=== PATIENT | female | born 1950 | race Caucasian/White ===

== ENCOUNTER 2016-10-12 23:39 | Observation (INO) | payer OTHER, BC ==
[2016-10-13 00:40] VITALS: BMI 21.8
--- NOTE | 2016-10-13 00:54 | PDOC ---
History of Present Illness - General History Source: Patient Exam Limitations: No Limitations <Osorio Rivera - Last Filed: 10/13/16 01:18> <Luis Fernando Vernon - Last Filed: 10/13/16 02:00> <Diane Bella - Last Filed: 10/13/16 08:05> - General Chief Complaint: Chest Pain Stated Complaint: CHEST PAIN Time Seen by Provider: 10/13/16 00:29 - History of Present Illness Initial Comments: 10/13/16 01:19 The patient is a 65 year old female, with a significant past medical history of HTN, anxiety and GERD, who presents to the emergency department with chest pain onset tonight. She describes her chest pain as mild, lasting roughly 20 minutes prior to resolving. She reports that she has had chest pain in the past but not like this and notes that she believes that her uncle had some cardiac issues but it's not aware of the age that it was onset. The patient denies shortness of breath, headache and dizziness. Denies fever, chills, nausea, vomit, diarrhea and constipation. Denies dysuria, frequency, urgency and hematuria. Allergies: None Past surgical history: None reported Social history: Wine use. No tobacco or drug use reported (Osorio Rivera) Past History <Osorio Rivera - Last Filed: 10/13/16 01:18> - Past Medical History HTN: Yes - Immunization History Immunization Up to Date: Yes - Psycho/Social/Smoking Cessation Hx Anxiety: No Suicidal Ideation: No Smoking History: Unknown if ever smoked Information on smoking cessation initiated: No Hx Alcohol Use: No Drug/Substance Use Hx: No Substance Use Type: None <Luis Fernando Vernon - Last Filed: 10/13/16 02:00> <Diane Bella - Last Filed: 10/13/16 08:05> - Past Medical History Allergies/Adverse Reactions: Allergies Allergy/AdvReac Type Severity Reaction Status Date / Time No Known Allergies Allergy Verified 10/13/16 00:36 Home Medications: Ambulatory Orders Lisinopril [Prinivil] 20 mg PO DAILY 07/06/14 Lorazepam 0.5 mg PO PRN PRN 07/06/14 Sertraline HCl [Zoloft] 25 mg PO PRN 07/06/14 Review of Systems - Review of Systems Able to Perform ROS?: Yes <Osorio Rivera - Last Filed: 10/13/16 01:18> <Luis Fernando Vernon - Last Filed: 10/13/16 02:00> <Diane Bella - Last Filed: 10/13/16 08:05> - Review of Systems Comments:: 10/13/16 01:19 CONSTITUTIONAL: No fever, no chills, no fatigue EYES: No visual changes ENT: No ear pain, no sore throat CARDIOVASCULAR: (+) Chest pain. No palpitations RESPIRATORY: No cough, no SOB GI: No abdominal pain, no nausea, no vomiting, no constipation, no diarrhea GENITOURINARY: No dysuria, no frequency, no hematuria MUSKULOSKELETAL: No backpain, no joint pain, no myalgias SKIN: No rash NEURO: No headache (Osorio Rivera) *Physical Exam <Osorio Rivera - Last Filed: 10/13/16 01:18> <Luis Fernando Vernon - Last Filed: 10/13/16 02:00> <Diane Bella - Last Filed: 10/13/16 08:05> - Vital Signs Last Vital Signs Temp Pulse Resp BP Pulse Ox 98.3 F 76 18 157/88 99 10/13/16 02:25 10/13/16 07:42 10/13/16 07:42 10/13/16 07:42 10/13/16 07:42 - Physical Exam Comments: 10/13/16 01:19 CONSTITUTIONAL: Well-appearing; well-nourished; in no apparent distress HEAD: Normocephalic; atraumatic EYES: PERRL; EOM intact ENMT: External appears normal; normal oropharynx NECK: Supple; non-tender; no cervical lymphadenopathy CARD: Normal S1, S2; no murmurs, rubs, or gallops RESP: Normal chest excursion with respiration; breath sounds clear and equal bilaterally; no wheezes, rhonchi, or rales ABD: Soft, non-distended; non-tender; no palpable organomegaly, no palpable hernias EXT: Normal ROM in all four extremities; non-tender to palpation; distal pulses intact SKIN: Warm, dry, no rash NEURO: No focal neurological deficiencies. (Osorio Rivera) ED Treatment Course - LABORATORY CBC & Chemistry Diagram: 10/13/16 01:20 10/13/16 01:20 <Luis Fernando Vernon - Last Filed: 10/13/16 02:00> - LABORATORY CBC & Chemistry Diagram: 10/13/16 01:20 10/13/16 01:20 <Diane Bella - Last Filed: 10/13/16 08:05> - ADDITIONAL ORDERS Additional order review: Laboratory Results 10/13/16 10/13/16 10/13/16 06:00 01:20 01:20 INR 1.00 Sodium 139 Potassium 3.8 Chloride 102 Carbon Dioxide 29 Anion Gap 8 BUN 19 H D Creatinine 0.5 L D Creat Clearance w eGFR > 60 Random Glucose 109 H Calcium 9.1 Total Bilirubin 0.3 D AST 17 D ALT 25 D Alkaline Phosphatase 93 Creatine Kinase 92 93 Troponin I < 0.02 < 0.02 Total Protein 7.6 Albumin 4.1 10/13/16 01:20 RBC 4.15 MCV 89.7 MCHC 33.8 RDW 12.6 MPV 7.6 Neutrophils % 69.3 D Lymphocytes % 22.7 D Monocytes % 7.0 Eosinophils % 0.7 Basophils % 0.3 Medical Decision Making <Osorio Rivera - Last Filed: 10/13/16 01:18> <Luis Fernando Vernon - Last Filed: 10/13/16 02:00> <Diane Bella - Last Filed: 10/13/16 08:05> - Medical Decision Making 10/13/16 02:01 Patient is a well-appearing 65-year-old female with history of hypertension and GERD who presents to the ER with atypical left-sided chest pain. In the ER, patient is awake and alert, asymptomatic, hemodynamically stable. Initial EKG is within normal limit without evidence of acute ischemia. Chest x-ray reveals no evidence of cardiomegaly/infiltrate or effusion. Will obtain serial cardiac enzymes and if negative will discharge with outpatient follow-up. I do not suspect ACS or PE at this time. Will discuss with PMD prior to discharge. ( Luis Fernando Vernon) 10/13/16 07:[address] Vivian Wilkins via phone answering service. Awaiting call back. 10/13/16 07:31 Dr. Wilkins responded to the page. Patient's case was discussed. 10/13/16 07:45 Dr. Jacob request Medicine injury prevention coordinator. Dr. Hicks paged via phone answering service. Awaiting call back. 10/13/16 07:50 responded to the page and the patients case was discussed. 10/13/16 07:55 Dr. Duncan paged via phone answering service. Patient's case was discussed. (Diane Bella) *DC/Admit/Observation/Transfer <Osorio Rivera - Last Filed: 10/13/16 01:18> <Luis Fernando Vernon - Last Filed: 10/13/16 02:00> <Diane Bella - Last Filed: 10/13/16 08:05> Diagnosis at time of Disposition: Chest pain - Referrals Referrals: Vivian Wilkins [Primary Care Provider] - - Patient Instructions Printed Discharge Instructions: DI for Chest Pain - Attestations Scribe Attestion: 10/13/16 01:19 Documentation prepared by Osorio Rivera, acting as medical fee clerk for Luis Fernando Vernon MD (Osorio Rivera) 10/13/16 08:05 Documentation prepared by Diane Bella, acting as medical fee clerk for Luis Fernando Vernon MD (Diane Bella) Physician Attestion: 10/13/16 02:01 The documentation was prepared by the scribe under my direct supervision. I have reviewed the documentation which correctly represents the findings, medical decision-making and critical action taken by me. (Luis Fernando Vernon)
[2016-10-13 01:40] LABS: BASOPHIL 0.3 % (0-2.0); EOSINOPHIL 0.7 % (0-4.5); MCH 30.3 pg (25.7-33.7); MCHC 33.8 g/dl (32.0-36.0); MEAN CELL VOLUME 89.7 fl (80-96); MEAN PLT VOLUME 7.6 fl (7.5-11.1); NEUTROPHILS 69.3 % (42.8-82.8); PLATELET COUNT 200 K/MM3 (134-434); RDW 12.6 % (11.6-15.6)
[2016-10-13 02:06] LABS: ALBUMIN 4.1 g/dl (3.4-5.0); ANION GAP 8 (8-16); BILIRUBIN,TOTAL 0.3 mg/dL (0.2-1.0); CALCIUM 9.1 mg/dL (8.5-10.1); CO2 29 mmol/L (21-32); CREATININE 0.5 mg/dL (0.55-1.02); GLUCOSE,RANDOM 109 mg/dL (74-106); SGOT/AST 17 U/L (15-37); SGPT/ALT 25 U/L (12-78); TOT PROT 7.6 g/dl (6.4-8.2)
[2016-10-13 02:08] LABS: ALK PHOS 93 U/L (45-117); CPK 93 IU/L (26-192); TROPONIN I < 0.02 ng/ml (0.00-0.05)
[2016-10-13 06:42] LABS: CPK 92 IU/L (26-192); TROPONIN I < 0.02 ng/ml (0.00-0.05)
--- NOTE | 2016-10-13 07:59 | PDOC ---
*Physical Exam - Vital Signs Last Vital Signs Temp Pulse Resp BP Pulse Ox 98.3 F 76 18 157/88 99 10/13/16 02:25 10/13/16 07:42 10/13/16 07:42 10/13/16 07:42 10/13/16 07:42 ED Treatment Course - LABORATORY CBC & Chemistry Diagram: 10/13/16 01:20 10/13/16 01:20 - ADDITIONAL ORDERS Additional order review: Laboratory Results 10/13/16 10/13/16 10/13/16 06:00 01:20 01:20 INR 1.00 Sodium 139 Potassium 3.8 Chloride 102 Carbon Dioxide 29 Anion Gap 8 BUN 19 H D Creatinine 0.5 L D Creat Clearance w eGFR > 60 Random Glucose 109 H Calcium 9.1 Total Bilirubin 0.3 D AST 17 D ALT 25 D Alkaline Phosphatase 93 Creatine Kinase 92 93 Troponin I < 0.02 < 0.02 Total Protein 7.6 Albumin 4.1 10/13/16 01:20 RBC 4.15 MCV 89.7 MCHC 33.8 RDW 12.6 MPV 7.6 Neutrophils % 69.3 D Lymphocytes % 22.7 D Monocytes % 7.0 Eosinophils % 0.7 Basophils % 0.3 Medical Decision Making - Medical Decision Making 10/13/16 07:52 Patient signed out to me by Dr. Rosario. 65-year-old female history of hypertension presents with chest pain last night. Patient second troponin also returned negative. I called Dr. Wilkins, the patient's PMD who reports the patient has not had a cardiac workup in a few years and recommends that we admit her to. I called the hospitalist and spoke with Dr. Hicks who will admit the patient and requests a cardiology consult to Dr. Duncan. I spoke with Dr. Duncan who will see the patient this morning. *DC/Admit/Observation/Transfer Diagnosis at time of Disposition: Chest pain Qualifiers: Chest pain type: unspecified Qualified Code(s): R07.9 - Chest pain, unspecified - Discharge Dispostion Condition at time of disposition: Stable Admit: Yes - Referrals Referrals: Vivian Wilkins [Primary Care Provider] - - Patient Instructions Printed Discharge Instructions: DI for Chest Pain - Post Discharge Activity - Attestations Physician Attestion: 10/13/16 08:03 I, Dr. Wilmar Hutchinson MD, attest that this document has been prepared under my direction and personally reviewed by me in its entirety. I further attest, that it accurately reflects all work, treatment, procedures and medical decision -making performed by me.
--- NOTE | 2016-10-13 08:15 | CON.CARD ---
Cardiology Consult (text) - Consultation Consultation Note: Consult Dictated Atypical chest pain, likely GERD or possibly musculoskeletal REC: 3rd enzyme 10am Echo Stress MIBI ASA If above negative, d/c home with outpatient f/u 1-2 weeks. Thanks.
--- NOTE | 2016-10-13 09:01 | CONS ---
CARDIOLOGY CONSULTATION DATE OF CONSULTATION: 10/13/2016 REQUESTING PHYSICIAN: Glenys Hicks MD REASON FOR CONSULTATION: Evaluation of chest pain. HISTORY OF PRESENT ILLNESS: The patient is a 65-year-old female with chronic anxiety, chronic hypertension, who presents to the emergency room for an episode of substernal/epigastric chest burning which awoke her from sleep around 10 a.m. The pain radiated upwards towards her throat. Earlier that evening, she had had some old stir herrera for dinner and had also exercised, performing isometric arm exercises against the wall for the first time in a very long time. She reports that she walked to the refrigerator, and upon trying to open the refrigerator door, had similar discomfort in the chest area with movement of her arm. She denied nausea, vomiting, diaphoresis. She walks regularly and typically does not have any exertional cardiovascular symptoms. There is one O2 sat documented below 80% but remainder all > 95% on room air. I believe this is most likely a spurious recording/ likely typo- clinically, there is no suspicion for PE. PAST MEDICAL HISTORY: As above. ALLERGIES: None. MEDICATIONS: Reviewed in the electronic medical record: Zoloft 25 mg daily, lorazepam 0.5 p.r.n., and lisinopril 20 mg daily. FAMILY HISTORY: No early CAD or sudden cardiac . SOCIAL HISTORY: Nonsmoker, . No alcohol. No illicit drugs. PHYSICAL EXAMINATION: General: Pleasant. No distress. Ambulating throughout the emergency room. Vital Signs: Temperature 98.3, pulse 76, blood pressure 140/70, O2 saturation is 100% on room air. Neck: Pulses 2+. No bruits. Heart: S1, S2. Regular. No murmurs. Chest: Clear. Abdomen: Soft, nontender. No epigastric tenderness. No rebound or guarding. No Harden sign. Extremities: No edema. Dorsalis pedis pulses 2+. EKG was compared to previous EKG from 2004. There are no changes. It currently shows sinus rhythm at 67 beats per minute with normal axis, normal intervals. No acute ST or T changes. Cardiac enzymes are negative x2 sets. White blood cell count 7.0, hematocrit 37 , platelets 200. INR 1. Sodium 139, potassium 3.8, creatinine 0.5. LFTs are normal. IMPRESSION: Atypical chest pain, likely musculoskeletal or possibly reflux. PLAN: 1. Third enzyme at 10 a.m. 2. Aspirin therapy. 3. Echocardiogram for assessment of ejection fraction. 4. Plan for a nuclear stress test later this morning. If above is negative, patient can be discharged with outpatient followup in 1-2 weeks. AKBAR GOODEN M.D. [id number] MTDD
[2016-10-13] MEDS ORDERED: DIPYRIDAMOLE 50 MG/10 ML VIAL IVPB ONE (11:57)
[2016-10-13] MEDS ORDERED: DIPYRIDAMOLE STRESS TEST 32.9 MG in DEXTROSE 5%-WATER - 26.32 ML IVPB ONE (13:00)
[2016-10-13] MEDS ORDERED: LORazepam 0.5 MG TABLET PO PRN (14:21)
[2016-10-13] MEDS ORDERED: LISINOPRIL 20 MG TABLET (FP) PO SCH (14:30)
[2016-10-13] MEDS ORDERED: SERTRALINE HCL 25 MG TABLET (FP) PO SCH (14:30)
[2016-10-13] MEDS ORDERED: PANTOPRAZOLE 40 MG TABLET (FP) PO SCH (14:30)
[2016-10-13 15:46] VITALS: BP 141/77; PULSE 92; TEMP 97.7
--- NOTE | 2016-10-14 00:20 | HP ---
Admitting History and Physical - Admission History of Present Illness: Pt is a 65 y/o female, with PMH significant for HTN, anxiety and GERD, who presents to the emergency department with chest pain. She describes her chest pain as mild, lasting roughly 20 minutes prior to resolving. The pain was nonradiating. Pt denied any palpitations and no shortness of breath. In the ER the initial cpk/troponin was negative. History Source: Patient, Medical Record - Past Medical History Cardiovascular: Yes: HTN Gastrointestinal: Yes: GERD - Smoking History Smoking history: Unknown if ever smoked - Alcohol/Substance Use Hx Alcohol Use: No Home Medications - Allergies Allergies/Adverse Reactions: Allergies Allergy/AdvReac Type Severity Reaction Status Date / Time No Known Allergies Allergy Verified 10/13/16 00:36 - Home Medications Home Medications: Ambulatory Orders Lisinopril [Prinivil] 20 mg PO DAILY 07/06/14 Lorazepam 0.5 mg PO PRN PRN 07/06/14 Sertraline HCl [Zoloft] 25 mg PO PRN 07/06/14 Family Disease History - Family Disease History Family History: Unremarkable Review of Systems - Review of Systems Constitutional: reports: No Symptoms Eyes: reports: No Symptoms HENT: reports: No Symptoms Neck: reports: No Symptoms Cardiovascular: reports: Chest Pain Respiratory: reports: No Symptoms Gastrointestinal: reports: No Symptoms Physical Examination Vital Signs: Vital Signs Temperature 97.7 F 10/13/16 15:45 Pulse Rate 92 H 10/13/16 15:45 Respiratory Rate 18 10/13/16 14:25 Blood Pressure 141/77 10/13/16 15:45 O2 Sat by Pulse Oximetry (%) 98 10/13/16 14:25 Constitutional: Yes: No Distress Eyes: Yes: WNL HENT: Yes: WNL Neck: Yes: WNL, Supple Cardiovascular: Yes: WNL, Regular Rate and Rhythm Respiratory: Yes: WNL, Regular, CTA Bilaterally Gastrointestinal: Yes: WNL, Normal Bowel Sounds, Soft Musculoskeletal: Yes: WNL Extremities: Yes: WNL Edema: No Neurological: Yes: WNL, Alert, Oriented ...Motor Strength: WNL Problem List - Problems (1) Chest pain Assessment/Plan: ?Atypical Serial cpk/troponin to r/o ACS Cardio consult Echo Cont asa Code(s): R07.9 - CHEST PAIN, UNSPECIFIED Qualifiers: Chest pain type: unspecified Qualified Code(s): R07.9 - Chest pain, unspecified
--- NOTE | 2016-10-15 13:35 | EKG ---
Test Reason : Blood Pressure : / mmHG Vent. Rate : 067 BPM Atrial Rate : 067 BPM P-R Int : 170 ms QRS Dur : 080 ms QT Int : 400 ms P-R-T Axes : 058 039 041 degrees QTc Int : 422 ms NORMAL SINUS RHYTHM NORMAL ECG WHEN COMPARED WITH ECG OF 10-JAN-2004 02:57, NO SIGNIFICANT CHANGE WAS FOUND Confirmed by NADIA GONSALVES MD ([id number]) on 10/15/2016 1:34:47 PM Referred By: Confirmed By:NADIA GONSALVES MD
== END 2016-10-13 17:19 | disposition home or self-care (01) ==
LOC: JER 23:39 → JERBED 10-13 08:04 → UNDOADMOB 10-13 08:04 → JERBED 10-13 13:53 → J4W 10-13 13:53 → INTOOBSV 10-13 14:23 → OBSVTOIN 10-13 14:23 → J4W 10-13 14:25
PROVIDERS: ADMIT Internal Medicine; ATTEND Internal Medicine
PROC: 3E033GC Introduction of Other Therapeutic Substance into Peripheral Vein, Percutaneous Approach (ICD-10-PCS; principal; 2016-10-13)
DX: R07.89 Other chest pain (principal); K21.9 Gastro-esophageal reflux disease without esophagitis; I10 Essential (primary) hypertension; F41.9 Anxiety disorder, unspecified
CPT/HCPCS: 36415; 71010-TC; 78452-TC; 80053; 84484; 85025; 85610; 93005; 93010; 93017; 93306-TC; 99285-25; A9502; G0378

== ENCOUNTER 2017-05-28 10:20 | Emergency (ER) | payer OTHER, BC ==
[2017-05-28 10:27] VITALS: BMI 21.8
[2017-05-28] MEDS ORDERED: FAMOTIDINE 20 MG/50 ML IVPB 20 MG/50 ML MG IVPB ONE ×2 (11:21→11:58)
[2017-05-28] MEDS ORDERED: ONDANSETRON 4 MG/2 ML VIAL IVPUSH ONE (11:21)
[2017-05-28] MEDS ORDERED: SODIUM CHLORIDE 1,000 ML IV STA (11:21)
--- NOTE | 2017-05-28 11:32 | PDOC ---
History of Present Illness - General Chief Complaint: Pain Stated Complaint: ABD PAIN, NAUSEA Time Seen by Provider: 05/28/17 11:14 History Source: Patient Exam Limitations: No Limitations - History of Present Illness Initial Comments: 05/28/17 11:26 Patient is a 66F with history of anxiety and HTN here today complaining of vomiting and diarrhea starting about 12 hours ago. She is concerned that she has food poisoning from her chicken liver or from going to a democrat the previous two nights. She denies any blood in the stool or vomit. She denies fevers, chills, abdominal pain, shortness of breath, cough, and chest pain. She states that she now feels very nauseated but has thrown up so much she can no longer vomit. Past History - Past Medical History Allergies/Adverse Reactions: Allergies Allergy/AdvReac Type Severity Reaction Status Date / Time No Known Allergies Allergy Verified 05/28/17 10:27 Home Medications: Ambulatory Orders Lisinopril [Prinivil] 20 mg PO DAILY 07/06/14 Lorazepam 0.5 mg PO PRN PRN 07/06/14 Sertraline HCl [Zoloft] 25 mg PO PRN 07/06/14 COPD: No HTN: Yes - Immunization History Immunization Up to Date: Yes - Suicide/Smoking/Psychosocial Hx Smoking History: Never smoked Hx Alcohol Use: No Drug/Substance Use Hx: No Substance Use Type: None Review of Systems - Review of Systems Comments:: 05/28/17 11:29 GENERAL/CONSTITUTIONAL: No fever or chills. No weakness. HEAD, EYES, EARS, NOSE AND THROAT: No change in vision. No sore throat. CARDIOVASCULAR: No chest pain or shortness of breath RESPIRATORY: No cough, wheezing, or hemoptysis. GASTROINTESTINAL: Positive for nausea, vomiting, diarrhea or constipation. GENITOURINARY: No dysuria, frequency, or change in urination. MUSCULOSKELETAL: No joint or muscle swelling or pain. No neck or back pain. SKIN: No rash NEUROLOGIC: No headache, vertigo, loss of consciousness, or change in strength/ sensation. HEMATOLOGIC/LYMPHATIC: No anemia, easy bleeding, or history of blood clots. ALLERGIC/IMMUNOLOGIC: No hives or skin allergy. *Physical Exam - Vital Signs Last Vital Signs Temp Pulse Resp BP Pulse Ox 98.6 F 102 H 20 123/92 100 05/28/17 10:24 05/28/17 10:24 05/28/17 10:24 05/28/17 10:24 05/28/17 10:24 - Physical Exam Comments: 05/28/17 11:31 GENERAL: Awake, alert, and fully oriented, in no acute distress HEAD: No signs of trauma, normocephalic, atraumatic EYES: PERRLA, EOMI, sclera anicteric, conjunctiva clear ENT: Auricles normal inspection, hearing grossly normal, nares patent, oropharynx clear without exudates. Dry mucosa NECK: Normal ROM, supple, no lymphadenopathy, JVD, or masses LUNGS: No distress, speaks full sentences, clear to auscultation bilaterally HEART: Regular rate and rhythm, normal S1 and S2, no murmurs, rubs or gallops, peripheral pulses normal and equal bilaterally. ABDOMEN: Soft, nontender, normoactive bowel sounds. No guarding, no rebound. No masses EXTREMITIES: Normal inspection, Normal range of motion, no edema. No clubbing or cyanosis. NEUROLOGICAL: Cranial nerves II through XII grossly intact. Normal speech, no focal sensorimotor deficits SKIN: Warm, Dry, normal turgor, no rashes or lesions noted. ED Treatment Course - LABORATORY CBC & Chemistry Diagram: 05/28/17 11:50 05/28/17 11:50 Medical Decision Making - Medical Decision Making 05/28/17 11:34 Patient is 66F with history of HTN and anxiety here today with vomiting and diarrhea. Vital signs notable for tachycardia, mucous membranes dry. No belly pain on exam. Do not believe patient has an acute abdomen, but will draw labs to evaluate for metabolic and electrolyte abnormalities. Will treat with fluids , zofran, pepcid. 05/28/17 12:32 Laboratory Tests 05/28/17 05/28/17 05/28/17 11:50 11:50 11:50 WBC 9.7 D Hgb 12.5 Hct 36.5 Plt Count 186 BUN 14 Creatinine 0.5 L Creat Clearance w eGFR > 60 Urine Nitrite Negative Ur Leukocyte Esterase Negative CBC normal. CMP reassuring. UA negative. 05/28/17 13:14 Patient given reglan as well, feeling better, tolerating PO. Will discharge home with pcp follow up and return precautions. *DC/Admit/Observation/Transfer Diagnosis at time of Disposition: Diarrhea, Vomiting - Discharge Dispostion Disposition: HOME Condition at time of disposition: Good Admit: No - Referrals Referrals: Vivian Wilkins [Primary Care Provider] - - Patient Instructions Printed Discharge Instructions: DI for Vomiting -- Adult, DI for Diarrhea and Traveler's Diarrhea -- Adult Additional Instructions: Please return if you have any new, worsening or concerning symptoms. Please call your primary care physician tomorrow to follow up. - Post Discharge Activity
[2017-05-28] MEDS ORDERED: ONDANSETRON 4 MG/2 ML VIAL ONE (11:36)
[2017-05-28 11:57] LABS: BASO % 0.1 % (0-2.0); HEMATOCRIT 36.5 % (32.4-45.2); HEMOGLOBIN 12.5 GM/dL (10.7-15.3); LYMPH % 4.3 % (8-40); MCH 30.4 pg (25.7-33.7); MCHC 34.2 g/dl (32.0-36.0); MEAN PLT VOLUME 7.8 fl (7.5-11.1); MONO % 5.1 % (3.8-10.2); NEUT % 90.5 % (42.8-82.8); PLATELET COUNT 186 K/MM3 (134-434); RDW 12.6 % (11.6-15.6); WHITE BLOOD COUNT 9.7 K/mm3 (4.0-10.0)
[2017-05-28 11:58] LABS: URINE APPEARANCE CLEAR; URINE BILIRUBIN NEGATIVE (<2.0 mg/dL); URINE BLOOD NEGATIVE (NEGATIVE); URINE COLOR LTYELLOW; URINE GLUCOSE (UA) NEGATIVE (NEGATIVE); URINE KETONE NEGATIVE (NEGATIVE); URINE LEUK ESTERASE NEGATIVE (NEGATIVE); URINE NITRITE NEGATIVE (NEGATIVE); URINE PROTEIN NEGATIVE (NEGATIVE); URINE UROBILINOGEN NEGATIVE mg/dL (0.2-1.0)
[2017-05-28 12:18] LABS: ALK PHOS 93 U/L (45-117); ANION GAP 7 (8-16); BILIRUBIN,TOTAL 0.3 mg/dL (0.2-1.0); BLOOD UREA NITROGEN 14 mg/dL (7-18); CALCIUM 8.8 mg/dL (8.5-10.1); CHLORIDE 99 mmol/L (98-107); CO2 26 mmol/L (21-32); CREATININE 0.5 mg/dL (0.55-1.02); GLUCOSE,RANDOM 113 mg/dL (74-106); LIPASE 124 U/L (73-393); POTASSIUM 4.4 mmol/L (3.5-5.1); SGOT/AST 20 U/L (15-37); SGPT/ALT 24 U/L (12-78); SODIUM 132 mmol/L (136-145); TOT PROT 7.6 g/dl (6.4-8.2)
--- NOTE | 2017-05-28 12:26 | PDOC ---
Attending Attestation - Resident Resident Name: Chet Mccann - ED Attending Attestation I have performed the following: I have examined & evaluated the patient, The case was reviewed & discussed with the resident, I agree w/resident's findings & plan, Exceptions are as noted - HPI HPI: 05/28/17 11:53 66yF hx of htn, anxiety presents with nonbloody vomiting/diarrhea since last night, no associated abdominal pain, fever/chills. Pt sates she had some fried food on monday and felt alittle queezy last night before going to bed, but after she went to bed, she woke up feeling nauseus and then had ~30 episodes of small volume small volumve watery diarrhea. She notes also feeling unwell and had 3 BMs but no where near her symptoms. HR to 102 well appearing in n odistress dry mmm abd soft nontender suspect AGE will treat supportively will ck labs fluids zofran will reassess
[2017-05-28] MEDS ORDERED: METOCLOPRAMIDE HCL INJECTION 10 MG/2 ML VIAL IVPUSH ONE (12:34)
[2017-05-28] MEDS ORDERED: METOCLOPRAMIDE HCL INJECTION 10 MG/2 ML VIAL ONE (12:39)
[2017-05-28 13:55] VITALS: BP 128/73; PULSE 89; TEMP 98.9
== END 2017-05-28 13:55 | disposition home or self-care (01) ==
LOC: JER 10:20
PROC: 3E0337Z Introduction of Electrolytic and Water Balance Substance into Peripheral Vein, Percutaneous Approach (ICD-10-PCS; principal; 2017-05-28)
PROC: 3E033GC Introduction of Other Therapeutic Substance into Peripheral Vein, Percutaneous Approach (ICD-10-PCS; 2017-05-28)
PROC: 3E033GC Introduction of Other Therapeutic Substance into Peripheral Vein, Percutaneous Approach (ICD-10-PCS; 2017-05-28)
PROC: 3E033GC Introduction of Other Therapeutic Substance into Peripheral Vein, Percutaneous Approach (ICD-10-PCS; 2017-05-28)
DX: R11.2 Nausea with vomiting, unspecified (principal); R19.7 Diarrhea, unspecified; I10 Essential (primary) hypertension; F41.8 Other specified anxiety disorders
CPT/HCPCS: 36415; 80053; 81003; 83690; 85025; 96361; 96365; 96375; 99282-25; J7030

== ENCOUNTER 2018-03-06 10:10 | Emergency (ER) | payer OTHER, BC ==
--- NOTE | 2018-03-06 10:43 | PDOC ---
History of Present Illness - General Chief Complaint: Diarrhea Stated Complaint: FOOD POISONING Time Seen by Provider: 03/06/18 10:25 History Source: Patient Exam Limitations: No Limitations - History of Present Illness Travel History: No Initial Comments: 03/06/18 10:40 67y F hx of htn, anxiety, gerd presenting with nausea and diarrhea since awakening this morning. Pt states she was at a democr[employer] last night where they ate alot of raw seafood. Pt endorses mild cramping prior to have BMs. she describes her stool as soft, brown, and stringy and having more than 10 times over 2 hrs. Denies any active fomiting. she took an old reglan rx and notes she feels more jittery/anxious. denies any current abd pain, fever/chills, bpr , melena, dysuria. no abd surgery. no recent travel or sick contacts, no recent abx use. had the same food and notes he feels alittle nauesus but w/o diarrhea. Patient denies any chest pain, cough, back pain, shortness of breath, lightheadedness. PMD:Dr. sosa Past History - Past Medical History Allergies/Adverse Reactions: Allergies Allergy/AdvReac Type Severity Reaction Status Date / Time caffeine AdvReac Verified 03/06/18 10:20 Home Medications: Ambulatory Orders Lisinopril [Prinivil] 20 mg PO DAILY 07/06/14 Lorazepam 0.5 mg PO PRN PRN 07/06/14 Sertraline HCl [Zoloft] 25 mg PO PRN 07/06/14 Metoclopramide HCl [Reglan -] 10 mg PO ONCE 03/06/18 COPD: No HTN: Yes - Immunization History Immunization Up to Date: Yes - Suicide/Smoking/Psychosocial Hx Smoking History: Never smoked Hx Alcohol Use: No Drug/Substance Use Hx: No Substance Use Type: None Review of Systems - Review of Systems Able to Perform ROS?: Yes Comments:: 03/06/18 11:08 Constitutional - no reported Fever, Chills, HEENT: no reported vision changes, sore throat Respiratory: no reported cough, sob, hemoptysis Cardiac: no reported chest pain, palpitations, light headedness, leg swelling Abd/GI: +nausea, diarrhea no reported abd pain, vomiting, blood per rectum, melena, : no reported dysuria, frequency, discharge Musculskelatal - no reported back pain, joint swelling skin - no reported bruising, erythema, rash neurological: no reported headache, numbness, hematologic: no reported easy bruising, easy bleeding *Physical Exam - Vital Signs Last Vital Signs Temp Pulse Resp BP Pulse Ox 98.2 F 92 H 20 159/72 98 03/06/18 10:22 03/06/18 10:22 03/06/18 10:22 03/06/18 10:22 03/06/18 10:22 - Physical Exam Comments: 03/06/18 11:09 GENERAL: The patient is awake, alert, and fully oriented, Nontoxic - in no acute distress. HEAD: Normocephalic, atraumatic. EYES: extraocular movements intact, sclera anicteric, conjunctiva clear. ENT: Normal voice, Moist mucous membranes. NECK: Normal range of motion, supple LUNGS: Breath sounds equal, clear to auscultation bilaterally. No wheezes, no rhonchi, no rales. HEART: Regular rate and rhythm, normal S1 and S2 without murmur, rub or gallop. ABDOMEN: Soft, nontender, normoactive bowel sounds. No guarding, no rebound. . No CVA tenderness EXTREMITIES: Normal range of motion, no edema. No clubbing or cyanosis. No cords, erythema, or tenderness. NEUROLOGICAL: No facial assymetry, Normal speech, PSYCH: Normal mood, normal affect. SKIN: Warm, Dry, normal turgor, Moderate Sedation - Procedure Monitoring Vital Signs: Procedure Monitoring Vital Signs Temperature 98.2 F 03/06/18 10:22 Pulse Rate 92 H 03/06/18 10:22 Respiratory Rate 03/06/18 10:22 Blood Pressure 159/72 03/06/18 10:22 O2 Sat by Pulse Oximetry (%) 98 03/06/18 10:22 ED Treatment Course - LABORATORY CBC & Chemistry Diagram: 03/06/18 11:20 03/06/18 11:20 Medical Decision Making - Medical Decision Making 03/06/18 11:10 Suspect possible enteritis, abdomen is soft nontender without signs of localized peritonitis. We'll give the patient's fluids, Zofran will check basic labs If negative and patient feeling better anticipate discharge with outpatient management and supportive care Patient has an appt with Dr. Sosa on 03/06/18 13:07 The patient's labs were reviewed and they are unremarkable Patient is feeling clinically improved the patient is able to tolerate oral intake L discharge. Follow up with her primary care doctor as scheduled on . Return precautions were discussed I discussed the physical exam findings, ancillary test results and final diagnoses with the patient. I answered all of the patient's questions. The patient was satisfied with the care received and felt comfortable with the discharge plan and treatment plan. The patient will call their primary care physician within 24 hours to arrange follow-up and will return to the Emergency Department with any new, persistent or worsening symptoms. *DC/Admit/Observation/Transfer Diagnosis at time of Disposition: Diarrhea Qualifiers: Diarrhea type: unspecified type Qualified Code(s): R19.7 - Diarrhea, unspecified - Discharge Dispostion Disposition: HOME Condition at time of disposition: Improved Decision to Admit order: No - Referrals Referrals: Vivian Sosa [Primary Care Provider] - - Patient Instructions Printed Discharge Instructions: DI for Diarrhea and Traveler's Diarrhea -- Adult Additional Instructions: Return to the emergency department immediately with ANY new, persistent or worsening symptoms including worsening abdominal pain, fevers, inability to tolerate oral intake, chest pain, shortness of breath or any other concerns. Stay well hydrated. You MUST call and follow up with your doctor as scheduled on . Your emergency department visit is not complete without a followup with your doctor for reevaluation. Please make sure your doctor reviews the results of your emergency evaluation. Print Language: GREENLANDIC - Post Discharge Activity
[2018-03-06 10:56] VITALS: TEMP 98.2; BMI 21.6
[2018-03-06] MEDS ORDERED: SODIUM CHLORIDE 1,000 ML IV ONE (11:02)
[2018-03-06] MEDS ORDERED: ONDANSETRON 4 MG/2 ML VIAL IVPB ONE (11:02)
[2018-03-06] MEDS ORDERED: ONDANSETRON 4 MG/2 ML VIAL ONE (11:07)
[2018-03-06 11:38] LABS: BASO % 0.3 % (0-2.0); EOS % 0.2 % (0-4.5); HEMATOCRIT 35.7 % (32.4-45.2); HEMOGLOBIN 11.9 GM/dL (10.7-15.3); LYMPH % 26.8 % (8-40); MCH 29.6 pg (25.7-33.7); MCHC 33.3 g/dl (32.0-36.0); MEAN CELL VOLUME 88.9 fl (80-96); MEAN PLT VOLUME 7.9 fl (7.5-11.1); MONO % 6.9 % (3.8-10.2); NEUT % 65.8 % (42.8-82.8); PLATELET COUNT 209 K/MM3 (134-434); RBC 4.02 M/mm3 (3.60-5.2); RDW 12.6 % (11.6-15.6); WHITE BLOOD COUNT 4.5 K/mm3 (4.0-10.0)
[2018-03-06 11:53] LABS: ALBUMIN 4.2 g/dl (3.4-5.0); ALK PHOS 100 U/L (45-117); ANION GAP 8 MMOL/L (8-16); BILIRUBIN,TOTAL 0.3 mg/dL (0.2-1); BLOOD UREA NITROGEN 14 mg/dL (7-18); CALCIUM 9.2 mg/dL (8.5-10.1); CHLORIDE 100 mmol/L (98-107); CO2 25 mmol/L (21-32); CREATININE 0.6 mg/dL (0.55-1.3); GLUCOSE,RANDOM 105 mg/dL (74-106); POTASSIUM 4.4 mmol/L (3.5-5.1); SGOT/AST 48 U/L (15-37); SGPT/ALT 46 U/L (13-61); SODIUM 133 mmol/L (136-145); TOT PROT 7.7 g/dl (6.4-8.2)
[2018-03-06 12:22] LABS: URINE APPEARANCE CLEAR; URINE BILIRUBIN NEGATIVE (<2.0 mg/dL); URINE COLOR COLORLESS; URINE GLUCOSE (UA) NEGATIVE (NEGATIVE); URINE KETONE NEGATIVE (NEGATIVE); URINE LEUK ESTERASE NEGATIVE (NEGATIVE); URINE NITRITE NEGATIVE (NEGATIVE); URINE PROTEIN NEGATIVE (NEGATIVE); URINE UROBILINOGEN NEGATIVE mg/dL (0.2-1.0)
[2018-03-06 13:35] VITALS: BP 122/78; PULSE 78
== END 2018-03-06 13:25 | disposition home or self-care (01) ==
LOC: JER 10:10
PROC: 3E0337Z Introduction of Electrolytic and Water Balance Substance into Peripheral Vein, Percutaneous Approach (ICD-10-PCS; principal; 2018-03-06)
PROC: 3E033GC Introduction of Other Therapeutic Substance into Peripheral Vein, Percutaneous Approach (ICD-10-PCS; 2018-03-06)
DX: R19.7 Diarrhea, unspecified (principal); I10 Essential (primary) hypertension; F41.9 Anxiety disorder, unspecified
CPT/HCPCS: 36415; 80053; 81003; 85025; 96361; 96374; 99283-25; J7030

== ENCOUNTER 2019-03-10 13:15 | Emergency (ER) | payer OTHER, BC ==
--- NOTE | 2019-03-10 13:36 | PDOC ---
History of Present Illness - General Chief Complaint: Pain Stated Complaint: LLQ ABD PAIN AT NIGHT TIME Time Seen by Provider: 03/10/19 13:31 History Source: Patient Exam Limitations: No Limitations - History of Present Illness Initial Comments: 03/10/19 13:34 PCP: Christy Wilkins HPI: 68yo F with PMH Anxiety and HTN presenting with L flank pain at night and nausea this AM. Patient reports chronic self-diagnosed "issues with digesting fats" and intermittent diarrhea. She presents worries about pancreatitis given L -sided abdominal pain that occurs after dinner each night for the past two nights that resolves spontaneously by the morning and does not occur during the day. Patient read about her symptoms online and noted that her pain radiates up and down her back to her fingers and down to her knee intermittently. Over the past 48 hours she has tried tums, "a lot of" apple cider vinegar, raw garlic tea , "a bunch of weak tea and water, pancreas support supplement (with bitter melon and devils bark), and a variety of other herbal supplements from [facility]. She saw her PCP on 03/07/19 (3 days ago) and is worried she should have mentioned her intermittent diarrhea as she has now developed self-diagnosed pancreas problems. This morning she woke up with mild nausea, and felt more nauseous after having a small breakfast with blended soup. She denies dysuria, pain with urination, but endorses increased frequency in the setting of what she described as excessive fluid consumption. Of note, patient also has experienced lots of burping over the past several days since a [employer] green party. Denies fevers, chills, chest pain or tightness, SOB, vomiting. All: per nursing Meds: per chart PMH: As above PSH: Denies SHx: 2-3 glasses of wine per week Past History - Past Medical History Allergies/Adverse Reactions: Allergies Allergy/AdvReac Type Severity Reaction Status Date / Time caffeine AdvReac Verified 03/06/18 10:20 Home Medications: Ambulatory Orders Lisinopril [Prinivil] 20 mg PO DAILY 07/06/14 Lorazepam 0.5 mg PO PRN PRN 07/06/14 Sertraline HCl [Zoloft] 25 mg PO PRN 07/06/14 Metoclopramide HCl [Reglan -] 10 mg PO ONCE 03/06/18 COPD: No HTN: Yes Psychiatric Problems: Yes (Anxiety) - Immunization History Immunization Up to Date: Yes - Psycho Social/Smoking Cessation Hx Smoking History: Never smoked Hx Alcohol Use: No Drug/Substance Use Hx: No Substance Use Type: None Review of Systems - Review of Systems Able to Perform ROS?: Yes Is the patient limited [place] Citizen proficient: Yes Constitutional: No: Chills, Diaphoresis, Fever, Night Sweats, Weakness HEENTM: No: Recent change in vision, Nose Congestion, Throat Pain Respiratory: No: Cough, Shortness of Breath, Wheezing Cardiac (ROS): No: Chest Pain, Irregular Heart Rate, Chest Tightness ABD/GI: Yes: See HPI, Diarrhea, Nausea. No: Blood Streaked Bowels, Constipated , Poor Appetite, Poor Fluid Intake, Rectal Bleeding, Vomiting, Tarry Stools : Yes: Frequency (in setting of increased intake). No: Burning, Dysuria Musculoskeletal: Yes: Back Pain (L flank). No: Muscle Pain, Muscle Weakness Integumentary: No: Bruising, Dryness, Lesions, Lumps, Pruritus, Rash Neurological: No: Headache, Numbness, Tingling, Weakness Psychiatric: No: Stressors, Change in Appetite Endocrine: No: Increased Thirst, Increased Urine, Change in Weight Hematologic/Lymphatic: No: Anemia, Blood Clots, Easy Bleeding All Other Systems: Reviewed and Negative *Physical Exam - Physical Exam 03/10/19 14:35 VITALS: AFVSS GEN: Well appearing, NAD, comfortable. AAOx3. HEENT: NC/AT, EOMI, PERRLA. No facial asymmetry. Moist mucous membranes. Normal voice. Supple neck w/ FROM. CV: S1/S2, RRR, no m/r/g appreciated. LUNG: CTAB, no wheezes, crackles, rales, rhonchi. GI: Soft, non-tender, non-distended, +BSx4, no guarding, no rebound, no rashes overlying region of pain. No masses. Neg CVA tenderness b/l. EXTREMITIES: 2+ distal pulses. No LE edema. No obvious deformities of all extremities. SKIN: Warm, dry, no rashes observed. PSYCH: Normal mood and affect, anxious. NEURO: Moving all extremities well. CN grossly intact. Medical Decision Making - Medical Decision Making 03/10/19 14:28 68yo F with PMH Anxiety and HTN presenting with L flank pain at night and nausea this AM. History notable for many supplements, teas, and medications over the 48 hours preceding her nausea and several days of belching with her L abdominal pain. Exam notable for stable vitals, non-toxic, normal abdominal exam , no CVA tenderness. DDX: Gas pains, UTI, GI virus, less likely nephrolithiasis , even less likely ACS but will obtain EKG given new onset nausea. Unlikely pancreatitis given history and exam. - UA - EKG - Patient education - Reassured 03/10/19 15:00 EKbmp, NSR, normal axis, QTc 431, no ischemic changes noted 03/10/19 15:28 - UA without sign of bacteria or blood Dispo: home Discharge - Discharge Information Problems reviewed: Yes Clinical Impression/Diagnosis: Abdominal pain Qualifiers: Abdominal location: left upper quadrant Qualified Code(s): R10.12 - Left upper quadrant pain Condition: Stable Disposition: HOME - Admission No - Follow up/Referral Referrals: Lorna Sanders MD [Staff Physician] - - Patient Discharge Instructions Additional Instructions: You were seen and evaluated in the [facility]. Please follow up with your primary care provider in the next 2-3 days if your symptoms persist. Please call your GI doctor on Monday morning to arrange follow up for your digestive concerns. Return to the ED for any new or concerning symptoms including but not limited to : vomiting that prevents you from taking fluid or medication by mouth, or worsening pain that doesn't respond to over the counter pain medication. - Post Discharge Activity
[2019-03-10 13:46] VITALS: BP 158/88; PULSE 77; TEMP 98; BMI 22.1
--- NOTE | 2019-03-10 14:15 | PDOC ---
Attending Attestation - Resident Resident Name: Migel Russo - ED Attending Attestation I have performed the following: I have examined & evaluated the patient, The case was reviewed & discussed with the resident, I agree w/resident's findings & plan, Exceptions are as noted - HPI HPI: 03/10/19 14:09 68y F hx of anxiety, htn, presents with complaint of nausae and intermittent left sided abdominal pain. Pt has intermittent diarrhea for a while with intermittent L sided flank 'poknig' for the past 2 nights only in the evenings. Patient states the pain usually resolves on its own. Today she also felt a little bit of nausea so she came so came for evaluation. THe pt deneis any fever/chills, cp, sob, melena, bpr, dysuria, Dyspnea on exertion, vomiting, diarrhea. Patient states she feels well she denies any current pain or discomfort. Patient also had 1 episode of loose stool this morning, And felt like she has some belching PMD: Dr. Wilkins GI: Dr. Easley GENERAL: The patient is awake, alert, and fully oriented, Nontoxic - in no acute distress. HEAD: Normocephalic, atraumatic. EYES: extraocular movements intact, sclera anicteric, conjunctiva clear. ENT: Normal voice, Moist mucous membranes. NECK: Normal range of motion, supple LUNGS: Breath sounds equal, clear to auscultation bilaterally. No wheezes, no rhonchi, no rales. HEART: Regular rate and rhythm, normal S1 and S2 without murmur, rub or gallop. ABDOMEN: Soft, nontender, No guarding, no rebound. No CVA tenderness EXTREMITIES: Normal range of motion, no edema. NEUROLOGICAL: No facial assymetry, Normal speech, PSYCH: Normal mood, normal affect. SKIN: Warm, Dry, normal turgor, ddx includes possible UTI, kidmey stone will ck ua will erassess - Physicial Exam PE: 03/11/19 19:32 see above - Medical Decision Making 03/10/19 16:46 UA was negative the patient remains asymptomatic we will discharge patient with follow-up with GI
[2019-03-10] MEDS ORDERED: ONDANSETRON *ODT* 4 MG TABLET ONE (15:59)
[2019-03-10] MEDS ORDERED: ONDANSETRON *ODT* 4 MG TABLET SL ONE (16:44)
--- NOTE | 2019-03-10 17:06 | EKG ---
Test Reason : Blood Pressure : / mmHG Vent. Rate : 072 BPM Atrial Rate : 072 BPM P-R Int : 154 ms QRS Dur : 078 ms QT Int : 394 ms P-R-T Axes : 068 035 035 degrees QTc Int : 431 ms NORMAL SINUS RHYTHM NORMAL ECG WHEN COMPARED WITH ECG OF 13-OCT-2016 00:18, NO SIGNIFICANT CHANGE WAS FOUND Confirmed by JULIA FLORENTINO MD ([id number]) on 03/10/2019 5:06:24 PM Referred By: ANGEL Confirmed By:JULIA FLORENTINO MD
== END 2019-03-10 17:01 | disposition home or self-care (01) ==
LOC: FER 13:15
DX: R10.12 Left upper quadrant pain (principal); Z88.8 Allergy status to other drugs, medicaments and biological substances; I10 Essential (primary) hypertension; F41.9 Anxiety disorder, unspecified
CPT/HCPCS: 81003; 93005; 99282-25; Q0162

== ENCOUNTER 2022-08-22 17:39 | Emergency (ER) | payer OTHER, BC ==
[2022-08-22 17:50] VITALS: TEMP 98; BMI 20.9
[2022-08-22 18:33] LABS: BASO % 0.2 % (0-2.0); EOS % 0.3 % (0-4.5); HEMATOCRIT 36.6 % (32.4-45.2); HEMOGLOBIN 12.4 GM/dL (10.7-15.3); LYMPH % 25.3 % (8-40); MCHC 33.8 g/dl (32.0-36.0); MEAN CELL VOLUME 88.7 fl (80-96); MEAN PLT VOLUME 7.6 fl (7.5-11.1); NEUT % 65.2 % (42.8-82.8); PLATELET COUNT 224 10^3/uL (134-434); RBC 4.13 M/mm3 (3.60-5.2); RDW 12.5 % (11.6-15.6); WHITE BLOOD COUNT 5.9 K/mm3 (4.0-10.0)
[2022-08-22] MEDS ORDERED: ONDANSETRON 4 MG/2 ML VIAL IVPB ONE (18:38)
[2022-08-22] MEDS ORDERED: FAMOTIDINE 20 MG/50 ML IVPB 20 MG/50 ML MG IVPB ONE (18:38)
[2022-08-22 18:40] LABS: URINE APPEARANCE CLEAR; URINE BILIRUBIN NEGATIVE (NEGATIVE); URINE COLOR YELLOW; URINE GLUCOSE (UA) NEGATIVE (NEGATIVE); URINE KETONE NEGATIVE (NEGATIVE); URINE LEUK ESTERASE NEGATIVE (NEGATIVE); URINE NITRITE NEGATIVE (NEGATIVE); URINE PROTEIN NEGATIVE (NEGATIVE); URINE UROBILINOGEN 0.2 mg/dL (0.2-1.0)
[2022-08-22 18:47] LABS: POTASSIUM 4.4 mmol/L (3.5-5.1)
[2022-08-22] MEDS ORDERED: ONDANSETRON 4 MG/2 ML VIAL ONE (18:48)
[2022-08-22] MEDS ORDERED: FAMOTIDINE 10 MG/ML VIAL IVPB ONE (18:48)
[2022-08-22 18:49] LABS: CALCIUM 9.5 mg/dL (8.5-10.1)
[2022-08-22 18:50] LABS: ALBUMIN 4.2 g/dl (3.4-5.0); BLOOD UREA NITROGEN 12.8 mg/dL (7-18); MAGNESIUM 2.4 mg/dL (1.8-2.4)
[2022-08-22 18:52] LABS: CREATININE 0.6 mg/dL (0.55-1.3)
[2022-08-22 18:53] LABS: PHOSPHOROUS 3.5 mg/dL (2.5-4.9)
[2022-08-22 18:54] LABS: BILIRUBIN,TOTAL 0.3 mg/dL (0.2-1); TOT PROT 7.8 g/dl (6.4-8.2)
[2022-08-22] MEDS ORDERED: MAG HYDROX/AL HYDROX/SIMETH 30 ML UNIT-DOSE CUP PO ONE (19:25)
[2022-08-22] MEDS ORDERED: SODIUM CHLORIDE 0.9% 500 ML INFUS.BAG IV ONE (19:48)
[2022-08-22] MEDS ORDERED: MAG HYDROX/AL HYDROX/SIMETH 30 ML UNIT-DOSE CUP ONE (19:49)
[2022-08-22 19:58] VITALS: BP 165/86; PULSE 77; RESP 16
== END 2022-08-22 22:00 | disposition home or self-care (01) ==
LOC: JER 17:39
PROC: 3E033GC Introduction of Other Therapeutic Substance into Peripheral Vein, Percutaneous Approach (ICD-10-PCS; principal; 2022-08-22)
PROC: 3E033GC Introduction of Other Therapeutic Substance into Peripheral Vein, Percutaneous Approach (ICD-10-PCS; 2022-08-22)
DX: R42 Dizziness and giddiness (principal); R11.0 Nausea; R20.2 Paresthesia of skin; K59.00 Constipation, unspecified
CPT/HCPCS: 36415; 70450-TC; 74177-TC; 80053; 81003; 83690; 83735; 84100; 84484; 85025; 87086; 93005; 93010; 99285-25; Q9967

== ENCOUNTER 2022-10-01 15:30 | Observation (INO) | payer OTHER, BC ==
[2022-10-01 15:46] VITALS: BMI 20.5
[2022-10-01] MEDS ORDERED: LACTATED RINGERS SOLUTION 1000 ML INFUS.BAG IV ONE (16:48)
[2022-10-01 17:36] LABS: BASO % 0.3 % (0-2.0); EOS % 0.2 % (0-4.5); HEMATOCRIT 36.6 % (32.4-45.2); HEMOGLOBIN 12.3 GM/dL (10.7-15.3); LYMPH % 23.1 % (8-40); MCH 29.9 pg (25.7-33.7); MCHC 33.6 g/dl (32.0-36.0); MEAN CELL VOLUME 89.1 fl (80-96); MONO % 9.3 % (3.8-10.2); NEUT % 67.1 % (42.8-82.8); PLATELET COUNT 240 10^3/uL (134-434); RDW 12.3 % (11.6-15.6); WHITE BLOOD COUNT 6.1 K/mm3 (4.0-10.0)
[2022-10-01 17:52] LABS: POTASSIUM 4.3 mmol/L (3.5-5.1)
[2022-10-01 17:54] LABS: CALCIUM 9.2 mg/dL (8.5-10.1)
[2022-10-01 17:55] LABS: ALBUMIN 3.7 g/dl (3.4-5.0); BLOOD UREA NITROGEN 12.7 mg/dL (7-18)
[2022-10-01 17:58] LABS: CREATININE 0.5 mg/dL (0.55-1.3)
[2022-10-01 17:59] LABS: BILIRUBIN,TOTAL 0.4 mg/dL (0.2-1)
[2022-10-01 18:00] LABS: TOT PROT 7.2 g/dl (6.4-8.2)
[2022-10-01] MEDS ORDERED: LORazepam 0.5 MG TABLET PO PRN (18:59)
[2022-10-01] MEDS ORDERED: MELATONIN 5 MG TABLETS PO PRN (19:05)
[2022-10-02] MEDS: LISINOPRIL 20 MG TABLET PO SCH (06:26)
[2022-10-02] MEDS: SERTRALINE HCL 25 MG TABLET (FP) PO SCH (10:56)
[2022-10-02 13:07] VITALS: RESP 20
[2022-10-02] MEDS ORDERED: LISINOPRIL 10 MG TABLET PO SCH (22:00)
[2022-10-03] MEDS: LISINOPRIL 20 MG TABLET PO SCH (06:12)
[2022-10-03] MEDS: SERTRALINE HCL 25 MG TABLET (FP) PO SCH (09:38)
[2022-10-03 14:15] VITALS: BP 138/78; PULSE 94; TEMP 97.8
[2022-10-03] MEDS ORDERED: busPIRone HCL 10 MG TABLET (FP) PO SCH (22:00)
== END 2022-10-03 15:50 | disposition home or self-care (01) ==
LOC: JER 15:30 → JERBED 16:42 → J7W 22:41
PROVIDERS: ADMIT Internal Medicine; ATTEND Internal Medicine
PROC: 3E0337Z Introduction of Electrolytic and Water Balance Substance into Peripheral Vein, Percutaneous Approach (ICD-10-PCS; principal; 2022-10-01)
DX: F41.9 Anxiety disorder, unspecified (principal); E87.1 Hypo-osmolality and hyponatremia; F41.0 Panic disorder [episodic paroxysmal anxiety]; R10.12 Left upper quadrant pain; K21.9 Gastro-esophageal reflux disease without esophagitis; I10 Essential (primary) hypertension
CPT/HCPCS: 36415; 71046-TC-FY; 80053; 82550; 83690; 83835; 84439; 84443; 84481; 84484; 85025; 96360; 99285-25; G0378